=== PATIENT | female | born 1985 | race Caucasian/White ===

== ENCOUNTER → 2025-03-09 | Outpatient (CLI) | payer OTHER, SELFPAY ==
--- NOTE | 2025-03-09 11:08 | RAD_ITS ---
PROCEDURE: L/S SPINE BENDING FLEX/EXT 03/09/2025 REASON FOR EXAM: PAIN TECHNIQUE: Single 2 view of the lumbar spine FINDINGS: Vertebrae: No fracture Discs: Mild multilevel disc space narrowing. Alignment: Anatomic alignment. No subluxation of the flexion extension views to suggest instability. Other: Facet hypertrophy consistent with degenerative disc disease. RAD/L/S Spine Bending Flex/Ext IMPRESSION: No instability. Reading Location: [id number]
== END | disposition home or self-care (01) ==
LOC: MTRAD 11:08
PROVIDERS: PCP Family Medicine; Referring Provider Student in an Organized Health Care Education/Training Program; Visit Provider Student in an Organized Health Care Education/Training Program
DX: M54.50 Low back pain, unspecified (principal)
CPT/HCPCS: 72120

== ENCOUNTER → 2025-10-11 | Outpatient (CLI) | payer OTHER, SELFPAY ==
--- NOTE | 2025-10-11 13:02 | RAD_ITS ---
PROCEDURE: SHOULDER MIN 2 VIEWS 10/11/2025 REASON FOR EXAM: RIGHT SHOULDER TECHNIQUE: Procedure Code: RADSH Modality: DX Procedure: SHOULDER MIN 2 VIEWS Laterality: Right COMPARISON: None. FINDINGS: BONES: No acute fracture or suspicious osseous lesion. JOINTS: No dislocation. The joint spaces are normal. SOFT TISSUES: The soft tissues are unremarkable. RAD/Shoulder min 2 Views IMPRESSION: No acute findings. Reading Location: [id number]
--- NOTE | 2025-10-11 13:02 | RAD_ITS ---
PROCEDURE: ELBOW MIN 3 VIEWS 10/11/2025 REASON FOR EXAM: RIGHT ELBOW TECHNIQUE: Procedure Code: RADEL Modality: DX Procedure: ELBOW MIN 3 VIEWS Laterality: Right COMPARISON: None. FINDINGS: BONES: No acute fracture or focal osseous lesion. JOINTS: No dislocation. The joint spaces are normal. No signs of joint effusion. SOFT TISSUES: The soft tissues are unremarkable. RAD/Elbow min 3 Views IMPRESSION: No acute findings. Reading Location: [id number]
== END | disposition home or self-care (01) ==
LOC: MTRAD 13:02
PROVIDERS: PCP Family Medicine; Referring Provider Orthopaedic Surgery Sports Medicine; Visit Provider Orthopaedic Surgery Sports Medicine
DX: M25.511 Pain in right shoulder (principal); M25.521 Pain in right elbow
CPT/HCPCS: 73030; 73080